=== PATIENT | male | born 1960 | race Caucasian/White ===

== ENCOUNTER 2017-06-01 08:32 | Outpatient (CLI) | payer OTHER ==
[~2017-06-01] VITALS: Ht 185.4 cm; Wt 95.3 kg
[2017-06-01] MEDS ORDERED: PROPOFOL 500 MG/50 ML VIAL As Ordered ONE (08:37)
[2017-06-01] MEDS ORDERED: NS 1,000 ML IV ONE (08:45)
--- NOTE | 2017-06-01 09:52 | ROOR ---
Patient Name: Allan Dawson Procedure Date: 06/01/2017 9:37 AM Date of : 1960 Age: 57 Room: [facility] Gender: Male Note Status: Finalized Procedure: Upper GI endoscopy Indications: Heartburn Providers: Benton SINGH MD Referring MD: LIZ HILL MD Requesting Provider: Medicines: Monitored Anesthesia Care Complications: No immediate complications. Procedure: Pre-Anesthesia Assessment: - The heart rate, respiratory rate, oxygen saturations, blood pressure, adequacy of pulmonary ventilation, and response to care were monitored throughout the procedure. The Endoscope was introduced through the mouth, and advanced to the second part of duodenum. The upper GI endoscopy was accomplished without difficulty. The patient tolerated the procedure well. Findings: There were esophageal mucosal changes suspicious for short-segment Hadley's esophagus present in the lower third of the esophagus. The maximum longitudinal extent of these mucosal changes was 1 cm in length. Mucosa was biopsied with a cold forceps for histology randomly in the lower third of the esophagus and from 34 to 35 cm from the incisors. One specimen bottle was sent to pathology. The entire examined stomach was normal. The examined duodenum was normal. Impression: - Esophageal mucosal changes suspicious for short-segment Hadley's esophagus. Biopsied. - Normal stomach. - Normal examined duodenum. Recommendation: - Telephone endoscopist for pathology results in 2 weeks. - Use Prilosec (omeprazole) 20 mg PO daily. - If biopsies confirm barretts esophagus, will increase Prilosec to TWICE a day, and repeat EGD in 3 years for surveillance. Benton Singh MD Benton SINGH MD 06/01/2017 9:51:44 AM This report has been signed electronically. Number of Addenda: 0 Note Initiated On: 06/01/2017 9:37 AM Estimated Blood Loss: Estimated blood loss: none.
--- NOTE | 2017-06-01 10:07 | ROOR ---
Patient Name: Allan Dawson Procedure Date: 06/01/2017 9:38 AM Date of : 1960 Age: 57 Room: [facility] Gender: Male Note Status: Finalized Procedure: Colonoscopy Indications: Screening for colorectal malignant neoplasm Providers: Benton SINGH MD Referring MD: LIZ HILL MD Requesting Provider: Medicines: Monitored Anesthesia Care Complications: No immediate complications. Procedure: Pre-Anesthesia Assessment: - The heart rate, respiratory rate, oxygen saturations, blood pressure, adequacy of pulmonary ventilation, and response to care were monitored throughout the procedure. The Colonoscope was introduced through the anus and advanced to the terminal ileum, with identification of the appendiceal orifice and IC valve. The colonoscopy was performed without difficulty. The patient tolerated the procedure well. The quality of the bowel preparation was good. Findings: The perianal and digital rectal examinations were normal. Two sessile polyps were found in the sigmoid colon and splenic flexure. The polyps were 4 to 5 mm in size. These polyps were removed with a cold snare. Resection and retrieval were complete. Mild diverticulosis and moderate internal hemorrhoids. Impression: - Two 4 to 5 mm polyps in the sigmoid colon and at the splenic flexure, removed with a cold snare. Resected and retrieved. - Mild diverticulosis and moderate internal hemorrhoids. - The examination was otherwise normal on direct and retroflexion views. Recommendation: - Await pathology results. - Telephone endoscopist for pathology results in 2 weeks. - If the pathology report reveals adenomatous tissue, then repeat the colonoscopy for surveillance in 3 years. Benton Singh MD Benton SINGH MD 06/01/2017 10:07:03 AM This report has been signed electronically. Number of Addenda: 0 Note Initiated On: 06/01/2017 9:38 AM Estimated Blood Loss: Estimated blood loss: none.
[2017-06-01 10:30] VITALS: BP 113/70
== END 2017-06-01 10:37 | disposition home or self-care (01) ==
LOC: M OPP 08:32
PROVIDERS: ATTEND Internal Medicine Gastroenterology
DX: Z12.11 Encounter for screening for malignant neoplasm of colon (principal); D12.5 Benign neoplasm of sigmoid colon; D12.3 Benign neoplasm of transverse colon; K57.30 Diverticulosis of large intestine without perforation or abscess without bleeding; K64.8 Other hemorrhoids; R12 Heartburn; K22.8 Other specified diseases of esophagus; Z86.69 Personal history of other diseases of the nervous system and sense organs

== ENCOUNTER 2019-05-05 07:05 | Emergency (ER) | payer OTHER ==
[~2019-05-05] VITALS: Ht 182.9 cm; Wt 101.1 kg
[2019-05-05] MEDS ORDERED: OMEP-218 (07:12)
[2019-05-05] MEDS ORDERED: ADVI100T PO (07:12)
--- NOTE | 2019-05-05 07:40 | REP ---
Clinical: Chest pain . Comparison: None . Findings: The mediastinum and cardiac silhouette are stable and within normal limits for portable technique. The lung cornejo are clear without acute consolidation, effusion, or pneumothorax. Skeletal structures are intact. Impression: No acute cardiopulmonary process appreciated. Electronically Signed by Gerald Ambriz MD 05/05/2019 07:32 A
[2019-05-05 07:50] LABS: BASO % 0.5 % (0.0-1.0); EOS # 0.3 10^3/uL (0.0-0.50); EOS % 4.6 % (0.0-3.0); HEMATOCRIT 46.3 % (42.0-52.0); LYMPH % 29.7 % (24.0-44.0); MEAN CORPUSCULAR HEMOGLOBIN 31.2 pg (27.0-33.0); MEAN CORPUSCULAR HGB CONC 34.6 g/dl (32.0-36.5); MEAN CORPUSCULAR VOLUME 90.3 fl (80.0-96.0); MONO # 0.5 10^3/uL (0.0-0.8); MONO % 8.1 % (0.0-5.0); NEUTROPHILS # 3.7 10^3/uL (1.8-7.7); NEUTROPHILS % 56.6 % (36.0-66.0); PLATELET COUNT, AUTOMATED 265 10^3/uL (150-450); RED BLOOD COUNT 5.13 10^6/uL (4.30-6.10); WHITE BLOOD COUNT 6.6 10^3/uL (4.0-10.0)
[2019-05-05 08:02] LABS: BLOOD UREA NITROGEN 17 MG/DL (7-18); CALCIUM LEVEL 8.5 MG/DL (8.5-10.1); CARBON DIOXIDE LEVEL 24 MEQ/L (21-32); CHLORIDE LEVEL 110 MEQ/L (98-107); CK-MB VALUE MASS 4.2 NG/ML (<3.6); CPK CREATINE PHOSPHOKINASE 270 U/L (39-308); CREATININE FOR GFR 0.98 MG/DL (0.70-1.30); GLOMERULAR FILTRATION RATE > 60.0 (>56); GLUCOSE, FASTING 102 MG/DL (70-100); MB/CK RELATIVE INDEX 1.56 (< OR =4); POTASSIUM SERUM 4.2 MEQ/L (3.5-5.1); SODIUM LEVEL 142 MEQ/L (136-145); TROPONIN I < 0.02 NG/ML (< 0.10)
[2019-05-05] MEDS ORDERED: MORPHINE 4 MG/ML 1ML VIAL/SYRINGE (J2270) IV ONE ×2 (09:30→14:15)
[2019-05-05] MEDS ORDERED: ISOVUE-370 76% 100ML VIAL (Q9967) As Ordered ONE (09:48)
[2019-05-05 10:01] LABS: ALBUMIN 3.7 GM/DL (3.2-5.2); ALT/SGPT 46 U/L (12-78); BILIRUBIN,DIRECT 0.2 MG/DL (0.0-0.2); BILIRUBIN,TOTAL 0.5 MG/DL (0.2-1.0); LIPASE 74 U/L (73-393); TOTAL PROTEIN 6.4 GM/DL (6.4-8.2)
--- NOTE | 2019-05-05 10:22 | REP ---
CT of the chest with IV contrast, CT pulmonary angiography protocol: There are no emboli in the pulmonary trunk or central pulmonary arteries. There are no emboli in the pulmonary lobe or segment branches. There are no infiltrates or pleural effusions. There are no masses or nodules. The thoracic aorta is unremarkable. Cardiac size is enlarged. There is no pericardial effusion. The visualized upper abdominal contents are unremarkable except for an exophytic right renal upper pole cyst measuring 9.1 cm. Impression: There are no pulmonary emboli. Otherwise, negative CT study of the chest. 9.1 cm left renal upper pole cyst, partially visualized. Electronically Signed by Ray Leslie MD 05/05/2019 10:13 A
[2019-05-05] MEDS ORDERED: ASPIRIN 81 MG CHEW TABLET PO ONE (11:15)
[2019-05-05 13:57] LABS: CK-MB VALUE MASS 3.9 NG/ML (<3.6); CPK CREATINE PHOSPHOKINASE 253 U/L (39-308); MB/CK RELATIVE INDEX 1.54 (< OR =4); TROPONIN I < 0.02 NG/ML (< 0.10)
[2019-05-05 14:31] VITALS: BP 172/91
--- NOTE | 2019-05-05 21:22 | ECGEPIP ---
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
--- NOTE | 2019-05-05 21:26 | ECGEPIP ---
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
--- NOTE | 2019-05-08 07:24 | ED PDOC ---
Post-Departure Follow-Up su keenan fp fax formal report of cta chest for fu Paulina Garrido MD May 08, 2019 07:24
== END 2019-05-05 14:35 | disposition home or self-care (01) ==
LOC: M ED 07:05
DX: R07.9 Chest pain, unspecified (principal); R00.1 Bradycardia, unspecified; I49.3 Ventricular premature depolarization; K22.70 Barrett's esophagus without dysplasia; Z79.899 Other long term (current) drug therapy; Z87.891 Personal history of nicotine dependence
CPT/HCPCS: 71045; 71275; 80048; 80076; 82550; 82553; 83690; 84484; 85025; 93005; 93041; 94760; 96374; 96376; 99285; J2270; Q9967

== ENCOUNTER 2019-05-10 07:57 | Emergency (ER) | payer OTHER ==
[~2019-05-10] VITALS: Ht 182.9 cm; Wt 95.5 kg
[~2019-05-10 07:57] MED LIST: ADVI100T PO; OMEP-218
[2019-05-10] MEDS ORDERED: GABA-843 PO (09:53)
[2019-05-10 10:08] VITALS: BP 152/74
--- NOTE | 2019-05-11 16:45 | ECGEPIP ---
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
== END 2019-05-10 10:10 | disposition home or self-care (01) ==
LOC: M ED 07:57
DX: R20.0 Anesthesia of skin (principal); R19.7 Diarrhea, unspecified; K21.9 Gastro-esophageal reflux disease without esophagitis; Z79.899 Other long term (current) drug therapy; F17.210 Nicotine dependence, cigarettes, uncomplicated

== ENCOUNTER → 2019-05-11 | Outpatient (REF) | payer OTHER ==
[~2019-05-11] MED LIST changes: +GABA-843 PO
== END ==
LOC: M LAB REF 11:29
PROVIDERS: ATTEND Emergency Medicine
DX: R19.7 Diarrhea, unspecified (principal)

== ENCOUNTER 2020-08-14 08:35 | Day surgery (SDC) | payer OTHER ==
[~2020-08-14] VITALS: Ht 182.9 cm; Wt 96.2 kg
[~2020-08-14 08:35] MED LIST changes: -OMEP-218; +OMEP-218 PO
[2020-08-14] MEDS ORDERED: propofoL 500 MG/50 ML VIAL As Ordered ONE (09:05)
[2020-08-14] MEDS ORDERED: LIDOCAINE 2% 100MG/5ML SDV (FOR ANES.) As Ordered ONE ×2 (09:10→09:55)
[2020-08-14] MEDS: NS 1,000 ML IV ONE (09:11)
--- NOTE | 2020-08-14 09:53 | ROOR ---
Patient Name: Allan Dawson Procedure Date: 08/14/2020 9:28 AM Date of : 1960 Age: 60 Room: [facility] Gender: Male Note Status: Finalized Procedure: Upper GI endoscopy Indications: Surveillance for malignancy due to personal history of Hadley's esophagus Providers: Benton SINGH MD Referring MD: LIZ HILL MD Requesting Provider: Medicines: Monitored Anesthesia Care Complications: No immediate complications. Procedure: Pre-Anesthesia Assessment: - The heart rate, respiratory rate, oxygen saturations, blood pressure, adequacy of pulmonary ventilation, and response to care were monitored throughout the procedure. The Endoscope was introduced through the mouth, and advanced to the second part of duodenum. The upper GI endoscopy was accomplished without difficulty. The patient tolerated the procedure well. Findings: The Z-line was variable and was found 38 to 39 cm from the incisors. This was biopsied with a cold forceps for histology. The exam was otherwise without abnormality. Impression: - Z-line variable, 38 to 39 cm from the incisors. Biopsied. - The examination was otherwise normal. Recommendation: - Repeat upper endoscopy in 3 years for surveillance. Procedure Code(s): --- Professional --- 13345, Esophagogastroduodenoscopy, flexible, transoral; with biopsy, single or multiple Diagnosis Code(s): --- Professional --- K22.70, Hadley's esophagus without dysplasia K22.8, Other specified diseases of esophagus CPT copyright 2019 [employer]. All rights reserved. The codes documented in this report are preliminary and upon asbestos brake lining finisher helper review may be revised to meet current compliance requirements. Benton Singh MD Benton SINGH MD 08/14/2020 9:52:27 AM Electronically signed by Benton SINGH MD Number of Addenda: 0 Note Initiated On: 08/14/2020 9:28 AM Estimated Blood Loss: Estimated blood loss: none.
--- NOTE | 2020-08-14 10:04 | ROOR ---
Patient Name: Allan Dawson Procedure Date: 08/14/2020 9:29 AM Date of : 1960 Age: 60 Room: [facility] Gender: Male Note Status: Finalized Procedure: Colonoscopy Indications: High risk colon cancer surveillance: Personal history of colonic polyps Providers: Benton SINGH MD Referring MD: LIZ HILL MD Requesting Provider: Medicines: Monitored Anesthesia Care Complications: No immediate complications. Procedure: Pre-Anesthesia Assessment: - The heart rate, respiratory rate, oxygen saturations, blood pressure, adequacy of pulmonary ventilation, and response to care were monitored throughout the procedure. The Colonoscope was introduced through the anus and advanced to the terminal ileum, with identification of the appendiceal orifice and IC valve. The colonoscopy was performed without difficulty. The patient tolerated the procedure well. The quality of the bowel preparation was good. Findings: The perianal and digital rectal examinations were normal. Internal hemorrhoids were found during retroflexion. The hemorrhoids were medium-sized. Multiple small-mouthed diverticula were found in the sigmoid colon. The exam was otherwise normal throughout the examined colon. Impression: - Internal hemorrhoids. - Diverticulosis in the sigmoid colon. - No specimens collected. Recommendation: - Repeat colonoscopy in 5 years for surveillance. Procedure Code(s): --- Professional --- 16321, Colonoscopy, flexible; diagnostic, including collection of specimen(s) by brushing or washing, when performed (separate procedure) Diagnosis Code(s): --- Professional --- K57.30, Diverticulosis of large intestine without perforation or abscess without bleeding K64.8, Other hemorrhoids Z86.010, Personal history of colonic polyps CPT copyright 2019 [employer]. All rights reserved. The codes documented in this report are preliminary and upon plumber review may be revised to meet current compliance requirements. Benton Singh MD Benton SINGH MD 08/14/2020 10:03:59 AM Electronically signed by Benton SINGH MD Number of Addenda: 0 Note Initiated On: 08/14/2020 9:29 AM Estimated Blood Loss: Estimated blood loss: none.
[2020-08-14 10:30] VITALS: BP 120/68
== END 2020-08-14 10:45 | disposition home or self-care (01) ==
LOC: M OPP 08:35
PROVIDERS: ATTEND Internal Medicine Gastroenterology
DX: Z12.11 Encounter for screening for malignant neoplasm of colon (principal); Z86.010 Personal history of colon polyps; K57.30 Diverticulosis of large intestine without perforation or abscess without bleeding; K64.8 Other hemorrhoids; K22.8 Other specified diseases of esophagus; K22.70 Barrett's esophagus without dysplasia; K21.9 Gastro-esophageal reflux disease without esophagitis; K31.89 Other diseases of stomach and duodenum

== ENCOUNTER → 2022-03-15 | Outpatient (REF) | payer OTHER ==
[~2022-03-15] MED LIST changes: +GABA-282 PO; -GABA-843 PO; +OMEP-173 PO; -OMEP-218 PO
== END ==
LOC: M LAB REF 17:11
PROVIDERS: ATTEND Internal Medicine
DX: R30.0 Dysuria (principal)

== ENCOUNTER 2023-12-04 06:36 | Day surgery (SDC) | payer OTHER ==
[~2023-12-04] VITALS: Ht 182.9 cm; Wt 97.7 kg
[2023-12-04] MEDS ORDERED: fentaNYL 100 MCG/2 ML INJECTION As Ordered ONE (06:45)
[2023-12-04] MEDS ORDERED: propofoL 200 MG/20 ML VIAL As Ordered ONE (06:46)
[2023-12-04] MEDS: NS 1,000 ML IV ONE (07:13)
[2023-12-04 07:47] VITALS: TEMP 98.4
[2023-12-04 08:00] VITALS: BP 123/72; O2SAT 98
== END 2023-12-04 08:08 | disposition home or self-care (01) ==
LOC: M OPP 06:36
PROVIDERS: ATTEND Internal Medicine Gastroenterology
DX: K22.70 Barrett's esophagus without dysplasia (principal); K31.A0 Gastric intestinal metaplasia, unspecified; Z79.899 Other long term (current) drug therapy
CPT/HCPCS: 43239; 88305; J3010

== ENCOUNTER → 2025-03-20 | Outpatient (CLI) | payer MEDICARE, OTHER ==
[~2025-03-20] MED LIST changes: +GABA-1172 PO; -GABA-282 PO
== END ==
LOC: M RAD 08:43
PROVIDERS: ATTEND Internal Medicine
DX: Z00.01 Encounter for general adult medical examination with abnormal findings (principal)